=== PATIENT | female | born 1950 | race Caucasian/White ===

== ENCOUNTER → 2017-07-16 | Outpatient (CLI) | payer MEDICARE ==
[2017-07-16 10:19] LABS: MEAN CORPUSCULAR HEMOGLOBIN 30.5 pg (27.0-33.0); MEAN CORPUSCULAR HGB CONC 32.5 g/dl (32.0-36.5); MEAN CORPUSCULAR VOLUME 93.8 fl (80.0-96.0); RED CELL DISTRIBUTION WIDTH 13.3 % (11.5-14.5); WHITE BLOOD COUNT 7.7 10^3/uL (4.0-10.0)
[2017-07-16 11:00] LABS: ALBUMIN 3.9 GM/DL (3.2-5.2); ALBUMIN/GLOBULIN RATIO 1.26 (1.00-1.93); ALKALINE PHOSPHATASE 89 U/L (45-117); ALT/SGPT 18 U/L (12-78); ANION GAP 6 MEQ/L (8-16); AST/SGOT 14 U/L (15-37); BILIRUBIN,TOTAL 0.3 MG/DL (0.2-1.0); BLOOD UREA NITROGEN 16 MG/DL (7-18); CALCIUM LEVEL 8.8 MG/DL (8.8-10.2); CARBON DIOXIDE LEVEL 29 MEQ/L (21-32); CHLORIDE LEVEL 105 MEQ/L (98-107); CHOLESTEROL LEVEL 223 MG/DL (<200); CREATININE FOR GFR 0.67 MG/DL (0.55-1.02); GLOMERULAR FILTRATION RATE > 60.0 (>45); GLUCOSE, FASTING 86 MG/DL (80-110); POTASSIUM SERUM 4.8 MEQ/L (3.5-5.1); SODIUM LEVEL 140 MEQ/L (136-145); TRIGLYCERIDES LEVEL 100 MG/DL (<150)
--- NOTE | 2017-07-16 11:01 | REP ---
Chest two views HISTORY: COPD Comparison: None The lungs are hyperinflated. A minimal increase in interstitial markings is present in the lungs. Bullae are present in the upper lobes. The heart is normal in size. The pulmonary vasculature is normal in appearance. The bony structure is intact. IMPRESSION: COPD Signed by Wilmer Purvis MD 07/16/2017 10:52 A
--- NOTE | 2017-07-17 23:13 | ECGEPIP ---
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
== END ==
LOC: M LAB 09:12
PROVIDERS: ATTEND Family Medicine
DX: Z01.818 Encounter for other preprocedural examination (principal); D64.9 Anemia, unspecified; J44.9 Chronic obstructive pulmonary disease, unspecified; Z79.899 Other long term (current) drug therapy

== ENCOUNTER → 2017-11-05 | Outpatient (CLI) | payer MEDICARE ==
[2017-11-05 13:56] LABS: FREE T4 1.22 NG/DL (0.76-1.46)
== END ==
LOC: M WUC 10:15
DX: E89.0 Postprocedural hypothyroidism (principal)
CPT/HCPCS: 84443

== ENCOUNTER → 2018-01-05 | Outpatient (CLI) | payer MEDICARE ==
[2018-01-05 09:53] LABS: HEMATOCRIT 41.5 % (36.0-47.0); HEMOGLOBIN 13.6 g/dl (12.0-16.0); MEAN CORPUSCULAR HEMOGLOBIN 31.1 pg (27.0-33.0); MEAN CORPUSCULAR HGB CONC 32.8 g/dl (32.0-36.5); MEAN CORPUSCULAR VOLUME 94.7 fl (80.0-96.0); PLATELET COUNT, AUTOMATED 251 10^3/uL (150-450); RED BLOOD COUNT 4.38 10^6/uL (4.00-5.40); RED CELL DISTRIBUTION WIDTH 13.3 % (11.5-14.5); WHITE BLOOD COUNT 4.4 10^3/uL (4.0-10.0)
[2018-01-05 10:29] LABS: PROTHROMBIN TIME 14.4 SECONDS (12.4-14.5)
[2018-01-05 10:46] LABS: ALBUMIN 3.6 GM/DL (3.2-5.2); ALBUMIN/GLOBULIN RATIO 1.09 (1.00-1.93); ALKALINE PHOSPHATASE 85 U/L (45-117); ALT/SGPT 17 U/L (12-78); ANION GAP 6 MEQ/L (8-16); AST/SGOT 16 U/L (7-37); BILIRUBIN,TOTAL 0.4 MG/DL (0.2-1.0); BLOOD UREA NITROGEN 11 MG/DL (7-18); CALCIUM LEVEL 8.7 MG/DL (8.8-10.2); CARBON DIOXIDE LEVEL 30 MEQ/L (21-32); CHLORIDE LEVEL 107 MEQ/L (98-107); CHOLESTEROL LEVEL 204 MG/DL (<200); CHOLESTEROL RISK RATIO 2.582 (<5); CREATININE FOR GFR 0.67 MG/DL (0.55-1.30); GLOMERULAR FILTRATION RATE > 60.0 (>45); GLUCOSE, FASTING 79 MG/DL (70-100); HDL CHOLESTEROL 79 MG/DL (>40); LDL CHOLESTEROL 106.2 MG/DL (<100); NON-HDL-C 125 MG/DL; POTASSIUM SERUM 4.5 MEQ/L (3.5-5.1); SODIUM LEVEL 143 MEQ/L (136-145); THYROID STIMULATING HORMONE 0.819 uIU/ML (0.358-3.740); TOTAL PROTEIN 6.9 GM/DL (6.4-8.2); TRIGLYCERIDES LEVEL 94 MG/DL (<150)
[2018-01-05 11:53] LABS: ESTIMATED AVERAGE GLUCOSE 137 MG/DL (60-110); HEMOGLOBIN A1c 6.4 %
== END ==
LOC: M LAB 09:16
DX: J44.9 Chronic obstructive pulmonary disease, unspecified (principal); E89.0 Postprocedural hypothyroidism
CPT/HCPCS: 71046

== ENCOUNTER → 2018-11-03 | Outpatient (REF) | payer MEDICARE | LOC: M LABDRAW1 15:37 | PROVIDERS: ATTEND Internal Medicine Endocrinology, Diabetes & Metabolism | DX: E89.0 Postprocedural hypothyroidism (principal) ==

== ENCOUNTER → 2019-11-07 | Outpatient (CLI) | payer MEDICARE | LOC: M WUC 10:31 | PROVIDERS: ATTEND Internal Medicine Endocrinology, Diabetes & Metabolism | DX: E89.0 Postprocedural hypothyroidism (principal) ==

== ENCOUNTER → 2020-06-12 | Outpatient (CLI) | payer MEDICARE | LOC: M WUC 08:08 | PROVIDERS: ATTEND Internal Medicine Endocrinology, Diabetes & Metabolism | DX: E89.0 Postprocedural hypothyroidism (principal) ==

== ENCOUNTER → 2021-05-08 | Outpatient (REF) | payer MEDICARE | LOC: M WUC 12:33 → M LAB REF 12:33 | PROVIDERS: ATTEND Internal Medicine Endocrinology, Diabetes & Metabolism | DX: E89.0 Postprocedural hypothyroidism (principal) ==

== ENCOUNTER → 2022-01-06 | Outpatient (CLI) | payer MEDICARE ==
[2022-01-06 12:17] LABS: HEMATOCRIT 44.4 % (36.0-47.0); HEMOGLOBIN 14.5 g/dl (12.0-15.5); MEAN CORPUSCULAR HEMOGLOBIN 30.5 pg (27.0-33.0); MEAN CORPUSCULAR HGB CONC 32.7 g/dl (32.0-36.5); MEAN CORPUSCULAR VOLUME 93.5 fl (80.0-96.0); PLATELET COUNT, AUTOMATED 327 10^3/uL (150-450); RED BLOOD COUNT 4.75 10^6/uL (4.00-5.40); WHITE BLOOD COUNT 6.5 10^3/uL (4.0-10.0)
[2022-01-06 13:54] LABS: ALT/SGPT 23 U/L (12-78); BILIRUBIN,TOTAL 0.5 MG/DL (0.2-1.0); BLOOD UREA NITROGEN 11 MG/DL (7-18); CARBON DIOXIDE LEVEL 28 MEQ/L (21-32); CHLORIDE LEVEL 107 MEQ/L (98-107); CHOLESTEROL LEVEL 221 MG/DL (<200); CREATININE FOR GFR 0.82 MG/DL (0.55-1.30); GLOMERULAR FILTRATION RATE > 60.0 (>45); GLUCOSE, FASTING 91 MG/DL (70-100); POTASSIUM SERUM 4.2 MEQ/L (3.5-5.1); SODIUM LEVEL 139 MEQ/L (136-145); TRIGLYCERIDES LEVEL 91 MG/DL (<150)
[2022-01-06 13:55] LABS: ALBUMIN 3.7 GM/DL (3.2-5.2); CHOLESTEROL RISK RATIO 3.298 (<5); HDL CHOLESTEROL 67 MG/DL (>40); LDL CHOLESTEROL 136 MG/DL (<100); NON-HDL-C 154 MG/DL; THYROID STIMULATING HORMONE 0.525 uIU/ML (0.358-3.740); TOTAL 25(OH) VITAMIN D 18.8 NG/ML (30.0-100.0); TOTAL PROTEIN 6.8 GM/DL (6.4-8.2)
[2022-01-06 14:44] LABS: HEMOGLOBIN A1c 5.8 %
== END ==
LOC: M LAB 11:18
PROVIDERS: ATTEND Family Medicine
DX: D64.9 Anemia, unspecified (principal); R53.83 Other fatigue; E03.9 Hypothyroidism, unspecified

== ENCOUNTER → 2022-06-09 | Outpatient (CLI) | payer MEDICARE ==
[2022-06-09 12:53] LABS: HEMATOCRIT 43.8 % (36.0-47.0); HEMOGLOBIN 14.2 g/dl (12.0-15.5); MEAN CORPUSCULAR HEMOGLOBIN 30.7 pg (27.0-33.0); MEAN CORPUSCULAR HGB CONC 32.4 g/dl (32.0-36.5); MEAN CORPUSCULAR VOLUME 94.6 fl (80.0-96.0); PLATELET COUNT, AUTOMATED 375 10^3/uL (150-450); RED BLOOD COUNT 4.63 10^6/uL (4.00-5.40)
[2022-06-09 13:43] LABS: ALBUMIN 3.6 GM/DL (3.2-5.2); ALT/SGPT 26 U/L (12-78); BILIRUBIN,TOTAL 0.3 MG/DL (0.2-1.0); BLOOD UREA NITROGEN 16 MG/DL (7-18); CALCIUM LEVEL 9.1 MG/DL (8.8-10.2); CARBON DIOXIDE LEVEL 26 MEQ/L (21-32); CHLORIDE LEVEL 105 MEQ/L (98-107); CHOLESTEROL LEVEL 232 MG/DL (<200); CHOLESTEROL RISK RATIO 3.625 (<5); CREATININE FOR GFR 0.82 MG/DL (0.55-1.30); GLOMERULAR FILTRATION RATE > 60.0 (>45); GLUCOSE, FASTING 83 MG/DL (70-100); HDL CHOLESTEROL 64 MG/DL (>40); LDL CHOLESTEROL 148 MG/DL (<100); NON-HDL-C 168 MG/DL; POTASSIUM SERUM 4.3 MEQ/L (3.5-5.1); SODIUM LEVEL 136 MEQ/L (136-145); TOTAL PROTEIN 6.8 GM/DL (6.4-8.2); TRIGLYCERIDES LEVEL 98 MG/DL (<150)
[2022-06-09 14:13] LABS: TOTAL 25(OH) VITAMIN D 102.6 NG/ML (30.0-100.0)
== END ==
LOC: M LAB 12:11
PROVIDERS: ATTEND Family Medicine
DX: I10 Essential (primary) hypertension (principal); R53.83 Other fatigue; E03.9 Hypothyroidism, unspecified

== ENCOUNTER → 2022-06-26 | Outpatient (REF) | payer MEDICARE | LOC: M LABWUC 16:11 | PROVIDERS: ATTEND Internal Medicine Endocrinology, Diabetes & Metabolism | DX: E89.0 Postprocedural hypothyroidism (principal) ==

== ENCOUNTER → 2022-11-24 | Outpatient (CLI) | payer MEDICARE ==
[2022-11-24 10:08] LABS: HEMATOCRIT 43.6 % (36.0-47.0); HEMOGLOBIN 14.1 g/dl (12.0-15.5); MEAN CORPUSCULAR HEMOGLOBIN 32.1 pg (27.0-33.0); MEAN CORPUSCULAR HGB CONC 32.3 g/dl (32.0-36.5); MEAN CORPUSCULAR VOLUME 99.3 fl (80.0-96.0); PLATELET COUNT, AUTOMATED 452 10^3/uL (150-450); RED BLOOD COUNT 4.39 10^6/uL (4.00-5.40); WHITE BLOOD COUNT 9.4 10^3/uL (4.0-10.0)
[2022-11-24 10:43] LABS: ALBUMIN 3.9 G/DL (3.2-5.2); ALKALINE PHOSPHATASE 105 U/L (46-116); ALT/SGPT 33 U/L (7.0-40); AST/SGOT 34 U/L (<34); BILIRUBIN,TOTAL 0.4 MG/DL (0.3-1.2); BLOOD UREA NITROGEN 17 MG/DL (9-23); CALCIUM LEVEL 9.1 MG/DL (8.3-10.6); CARBON DIOXIDE LEVEL 27 MMOL/L (20-31); CHLORIDE LEVEL 103 MMOL/L (98-107); CHOLESTEROL LEVEL 167 MG/DL (<200); CHOLESTEROL RISK RATIO 2.72 (<5); GLOMERULAR FILTRATION RATE > 60.0 (>39); GLUCOSE, FASTING 115 MG/DL (74-106); HDL CHOLESTEROL 61.2 MG/DL (>40); LDL CHOLESTEROL 86.4 MG/DL (<100); NON-HDL-C 106 MG/DL; POTASSIUM SERUM 4.4 MMOL/L (3.5-5.1); SODIUM LEVEL 137 MMOL/L (136-145); TOTAL PROTEIN 7.3 G/DL (5.7-8.2); TRIGLYCERIDES LEVEL 97 MG/DL (<150)
[2022-11-24 10:45] LABS: THYROID STIMULATING HORMONE 0.563 uIU/ML (0.55-4.78); TOTAL 25(OH) VITAMIN D 37.6 NG/ML (20.0-100.0)
== END ==
LOC: M RAD 09:23
PROVIDERS: ATTEND Family Medicine
DX: J18.9 Pneumonia, unspecified organism (principal); D64.9 Anemia, unspecified; J44.9 Chronic obstructive pulmonary disease, unspecified; J98.11 Atelectasis

== ENCOUNTER → 2022-12-03 | Outpatient (CLI) | payer MEDICARE | LOC: M RAD 10:54 | PROVIDERS: ATTEND Family Medicine | DX: J18.9 Pneumonia, unspecified organism (principal); J84.10 Pulmonary fibrosis, unspecified; J43.9 Emphysema, unspecified; R91.1 Solitary pulmonary nodule; R91.8 Other nonspecific abnormal finding of lung field ==

== ENCOUNTER → 2023-01-21 | Outpatient (CLI) | payer MEDICARE ==
[2023-01-21 11:06] LABS: HEMATOCRIT 39.8 % (36.0-47.0); HEMOGLOBIN 12.9 g/dl (12.0-15.5); MEAN CORPUSCULAR HEMOGLOBIN 31.9 pg (27.0-33.0); MEAN CORPUSCULAR HGB CONC 32.4 g/dl (32.0-36.5); MEAN CORPUSCULAR VOLUME 98.5 fl (80.0-96.0); PLATELET COUNT, AUTOMATED 337 10^3/uL (150-450); RED BLOOD COUNT 4.04 10^6/uL (4.00-5.40); WHITE BLOOD COUNT 16.5 10^3/uL (4.0-10.0)
[2023-01-21 11:30] LABS: HEMOGLOBIN A1c 5.5 % (4.0-6.0)
[2023-01-21 11:34] LABS: ALKALINE PHOSPHATASE 108 U/L (46-116); ALT/SGPT 22 U/L (7.0-40); AST/SGOT 18 U/L (<34); BILIRUBIN,TOTAL 0.4 MG/DL (0.3-1.2); BLOOD UREA NITROGEN 18 MG/DL (9-23); CALCIUM LEVEL 9.1 MG/DL (8.3-10.6); CARBON DIOXIDE LEVEL 28 MMOL/L (20-31); CHLORIDE LEVEL 106 MMOL/L (98-107); CHOLESTEROL LEVEL 122 MG/DL (<200); CHOLESTEROL RISK RATIO 2.31 (<5); GLOMERULAR FILTRATION RATE > 60.0 (>39); GLUCOSE, FASTING 152 MG/DL (74-106); HDL CHOLESTEROL 52.6 MG/DL (>40); IRON (FE) 13 UG/DL (50-170); LDL CHOLESTEROL 51.8 MG/DL (<100); NON-HDL-C 69.4 MG/DL; PERCENT SATURATION 5.9 % (13.2-45.0); POTASSIUM SERUM 3.6 MMOL/L (3.5-5.1); SODIUM LEVEL 140 MMOL/L (136-145); THYROID STIMULATING HORMONE 1.138 uIU/ML (0.55-4.78); TOTAL IRON BINDING CAPACITY 221 UG/DL (250-425); TOTAL PROTEIN 6.1 G/DL (5.7-8.2); TRIGLYCERIDES LEVEL 88 MG/DL (<150)
== END ==
LOC: M LAB 10:18
PROVIDERS: ATTEND Family Medicine
DX: D64.9 Anemia, unspecified (principal); R53.83 Other fatigue; E03.9 Hypothyroidism, unspecified

== ENCOUNTER → 2023-03-02 | Outpatient (CLI) | payer MEDICARE | LOC: M RAD 15:51 | PROVIDERS: ATTEND Family Medicine | DX: J44.9 Chronic obstructive pulmonary disease, unspecified (principal) ==

== ENCOUNTER → 2023-07-30 | Outpatient (CLI) | payer MEDICARE ==
[2023-07-30 15:28] LABS: HEMATOCRIT 44.7 % (36.0-47.0); HEMOGLOBIN 14.9 g/dl (12.0-15.5); MEAN CORPUSCULAR HGB CONC 33.3 g/dl (32.0-36.5); MEAN CORPUSCULAR VOLUME 98.9 fl (80.0-96.0); PLATELET COUNT, AUTOMATED 377 10^3/uL (150-450); RED BLOOD COUNT 4.52 10^6/uL (4.00-5.40); WHITE BLOOD COUNT 10.1 10^3/uL (4.0-10.0)
== END ==
LOC: M LAB 13:57
PROVIDERS: ATTEND Family Medicine
DX: D64.9 Anemia, unspecified (principal); R53.83 Other fatigue; J44.9 Chronic obstructive pulmonary disease, unspecified; J32.0 Chronic maxillary sinusitis

== ENCOUNTER 2023-09-18 14:37 | Emergency (ER) | payer MEDICARE ==
[~2023-09-18] VITALS: Ht 154.9 cm; Wt 40.9 kg
[2023-09-18 14:40] VITALS: TEMP 98.6
[2023-09-18] MEDS ORDERED: IPRATROPIUM 0.5MG/ALBUTEROL 2.5MG INH SOL UD 3ML (DUONEB) NEB PRN (17:55)
[2023-09-18] MEDS ORDERED: methylPREDNISolone 125MG 2ML VIAL IV ONE (17:55)
[2023-09-18 18:13] LABS: BASO % 0.4 % (0.0-1.0); EOS # 0.1 10^3/uL (0.0-0.5); EOS % 0.7 % (0.0-3.0); LYMPH % 8.5 % (24.0-44.0); MEAN CORPUSCULAR HEMOGLOBIN 32.6 pg (27.0-33.0); MEAN CORPUSCULAR HGB CONC 33.3 g/dl (32.0-36.5); MEAN CORPUSCULAR VOLUME 97.8 fl (80.0-96.0); MONO # 1.4 10^3/uL (0.0-0.8); MONO % 12.7 % (2.0-8.0); NEUTROPHILS # 8.7 10^3/uL (1.5-8.5); PLATELET COUNT, AUTOMATED 352 10^3/uL (150-450); RED BLOOD COUNT 3.68 10^6/uL (4.00-5.40); WHITE BLOOD COUNT 11.3 10^3/uL (4.0-10.0)
[2023-09-18 18:36] LABS: ALBUMIN 2.6 G/DL (3.2-5.2); ALKALINE PHOSPHATASE 102 U/L (46-116); ALT/SGPT 43 U/L (7.0-40); AST/SGOT 27 U/L (<34); BILIRUBIN,DIRECT 0.4 MG/DL (<0.4); BLOOD UREA NITROGEN 13 MG/DL (9-23); CALCIUM LEVEL 8.3 MG/DL (8.3-10.6); CARBON DIOXIDE LEVEL 22 MMOL/L (20-31); CHLORIDE LEVEL 102 MMOL/L (98-107); CREATININE FOR GFR 0.65 MG/DL (0.55-1.30); GLOMERULAR FILTRATION RATE > 60.0 (>39); GLUCOSE, FASTING 76 MG/DL (74-106); POTASSIUM SERUM 4.8 MMOL/L (3.5-5.1); SODIUM LEVEL 135 MMOL/L (136-145); TOTAL PROTEIN 5.8 G/DL (5.7-8.2)
[2023-09-18 18:37] LABS: THYROXINE (T4) 11.7 UG/DL (4.5-10.9)
[2023-09-18 18:38] LABS: THYROID STIMULATING HORMONE 0.615 uIU/ML (0.55-4.78)
[2023-09-18 19:31] VITALS: O2SAT 91
[2023-09-18] MEDS ORDERED: IPRATROPIUM 0.5MG/ALBUTEROL 2.5MG INH SOL UD 3ML (DUONEB) NEB ONE ×2 (19:55)
[2023-09-18] MEDS ORDERED: ALBU8.5H INH (20:07)
[2023-09-18] MEDS ORDERED: FLUTISP NARES (20:07)
[2023-09-18] MEDS ORDERED: CITA20TA7 PO (20:07)
[2023-09-18] MEDS ORDERED: FERR325T19 PO (20:07)
[2023-09-18] MEDS ORDERED: BUDE10.7 INH (20:07)
[2023-09-18] MEDS ORDERED: LEVO112T2 PO (20:08)
[2023-09-18] MEDS ORDERED: SIMV10TA21 PO (20:08)
[2023-09-18 20:18] VITALS: BP 159/89; O2SAT 89
[2023-09-18] MEDS ORDERED: HOME MED LIST COMPLETE! XX SCH (20:25)
[2023-09-18] MEDS ORDERED: BUDESONIDE 0.5 MG/2 ML INHALATION SUSPENSION INH SCH (20:30)
[2023-09-18] MEDS ORDERED: FORMOTEROL FUMARATE 20 MCG/2 ML INHALATION SOLUTION (PERFOROMIST) INH SCH (20:30)
[2023-09-18] MEDS ORDERED: CEFU50TA PO (20:58)
[2023-09-18] MEDS ORDERED: PRED20TA PO (20:58)
[2023-09-18] MEDS ORDERED: PANTOPRAZOLE 40MG TAB (PROTONIX) PO SCH (21:00)
[2023-09-18] MEDS ORDERED: AZITHROMYCIN 250MG TABLET PO SCH (21:00)
[2023-09-18] MEDS ORDERED: CitaloPRAM (CeleXA) 20 MG TAB PO SCH (21:00)
[2023-09-18] MEDS ORDERED: SIMVASTATIN 10 MG TAB PO SCH (21:00)
[2023-09-18] MEDS ORDERED: CEFUROXIME 500 MG TAB PO STA (21:01)
[2023-09-19] MEDS ORDERED: IPRATROPIUM 0.5MG/ALBUTEROL 2.5MG INH SOL UD 3ML (DUONEB) NEB SCH
[2023-09-19] MEDS ORDERED: methylPREDNISolone 40MG 1ML VIAL IV SCH
[2023-09-19] MEDS ORDERED: LEVOTHYROXINE 112MCG TABLET (0.112MG) PO SCH (06:00)
[2023-09-28] MEDS ORDERED: ERGO500029 PO (18:58)
[2023-09-29] MEDS ORDERED: PRED10TA2 PO (10:46)
[2023-09-29] MEDS ORDERED: MUCI1TAB16 PO (10:46)
[2023-09-29] MEDS ORDERED: DOXY-444 PO (10:46)
[2023-09-29] MEDS ORDERED: ALBU8.5H INH (10:46)
[2023-09-29] MEDS ORDERED: AZIT-12 PO (10:46)
[2023-09-29] MEDS ORDERED: PRED20TA PO (10:46)
[2023-10-02] MEDS ORDERED: ALPR0.25 PO (08:29)
[2023-10-02] MEDS ORDERED: AMLO1TAB24 PO (08:29)
[2023-10-02] MEDS ORDERED: NYST-38 PO (08:29)
== END 2023-09-18 21:25 | disposition home or self-care (01) ==
LOC: M ED 14:37 → UNDOADMIN 20:28 → M ED INP 20:28 → UNDODISIN 21:24
PROVIDERS: ADMIT Internal Medicine Nephrology
DX: J44.1 Chronic obstructive pulmonary disease with (acute) exacerbation (principal); I44.4 Left anterior fascicular block; I25.2 Old myocardial infarction; Z79.52 Long term (current) use of systemic steroids; Z79.2 Long term (current) use of antibiotics; Z79.899 Other long term (current) drug therapy
CPT/HCPCS: 71046; 80048; 80076; 83605; 83880; 84436; 84443; 85025; 87040; 87486; 87581; 87633; 87798; 93005; 93041; 94640; 94760; 96374; 99284; J2930

== ENCOUNTER → 2023-09-24 | Outpatient (REF) | payer MEDICARE ==
[~2023-09-24] MED LIST: ALBU8.5H INH; BUDE10.7 INH; CEFU50TA PO; CITA20TA7 PO; FERR325T19 PO; FLUTISP; LEVO112T2 PO; PRED20TA PO; SIMV10TA21 PO
[2023-09-24 18:01] LABS: THYROID STIMULATING HORMONE 0.12 uIU/ML (0.55-4.78)
[2023-09-24 18:02] LABS: FREE T4 1.55 NG/DL (0.89-1.76)
== END ==
LOC: M LABWUC 16:32
PROVIDERS: ATTEND Internal Medicine Endocrinology, Diabetes & Metabolism
DX: E89.0 Postprocedural hypothyroidism (principal)

== ENCOUNTER → 2023-12-01 | Outpatient (CLI) | payer MEDICARE, OTHER ==
[~2023-12-01] MED LIST changes: +ALPR0.25 PO; +AMLO1TAB24 PO; +AZIT-12 PO; +DOXY-444 PO; +ERGO500029 PO; -FLUTISP; +FLUTISP NARES; +MUCI1TAB16 PO; +NYST-38 PO; +PRED10TA2 PO
[2023-12-01 17:58] LABS: THYROID STIMULATING HORMONE 0.384 uIU/ML (0.55-4.78)
[2023-12-01 17:59] LABS: FREE T4 1.34 NG/DL (0.89-1.76)
== END ==
LOC: M WUC 14:00
PROVIDERS: ATTEND Internal Medicine Endocrinology, Diabetes & Metabolism
DX: E89.0 Postprocedural hypothyroidism (principal)

== ENCOUNTER → 2023-12-17 | Outpatient (REF) | payer MEDICARE, OTHER | LOC: M LAB REF 16:45 | PROVIDERS: ATTEND Physician Assistant | DX: Z51.81 Encounter for therapeutic drug level monitoring (principal); F41.1 Generalized anxiety disorder ==

== ENCOUNTER → 2024-01-19 | Outpatient (REF) | payer MEDICARE, OTHER ==
[2024-01-19 18:05] LABS: HEMOGLOBIN 13.8 g/dl (12.0-15.5); MEAN CORPUSCULAR HEMOGLOBIN 30.6 pg (27.0-33.0); MEAN CORPUSCULAR HGB CONC 31.4 g/dl (32.0-36.5); MEAN CORPUSCULAR VOLUME 97.6 fl (80.0-96.0); PLATELET COUNT, AUTOMATED 365 10^3/uL (150-450); RED BLOOD COUNT 4.51 10^6/uL (4.00-5.40); WHITE BLOOD COUNT 10.4 10^3/uL (4.0-10.0)
[2024-01-19 18:31] LABS: BLOOD UREA NITROGEN 25 MG/DL (9-23); CALCIUM LEVEL 8.6 MG/DL (8.3-10.6); CARBON DIOXIDE LEVEL 26 MMOL/L (20-31); CHLORIDE LEVEL 107 MMOL/L (98-107); CREATININE FOR GFR 0.96 MG/DL (0.55-1.30); GLOMERULAR FILTRATION RATE > 60.0 (>39); GLUCOSE, FASTING 109 MG/DL (74-106); POTASSIUM SERUM 5.1 MMOL/L (3.5-5.1); SODIUM LEVEL 139 MMOL/L (136-145)
[2024-01-19 18:34] LABS: THYROID STIMULATING HORMONE 0.372 uIU/ML (0.55-4.78)
== END ==
LOC: M LAB REF 17:17
PROVIDERS: ATTEND Physician Assistant
DX: I10 Essential (primary) hypertension (principal)

== ENCOUNTER → 2024-06-17 | Outpatient (CLI) | payer MEDICARE, OTHER ==
[~2024-06-17] MED LIST changes: +DOXY-440 PO; -DOXY-444 PO; +LISI10TA22 PO
== END ==
LOC: M WUC 09:49
PROVIDERS: ATTEND Physician Assistant
DX: M54.50 Low back pain, unspecified (principal); M47.812 Spondylosis without myelopathy or radiculopathy, cervical region; M48.56XA Collapsed vertebra, not elsewhere classified, lumbar region, initial encounter for fracture

== ENCOUNTER 2024-07-04 10:14 | Day surgery (SDC) | payer MEDICARE ==
[~2024-07-04] VITALS: Ht 154.9 cm; Wt 49.9 kg
[~2024-07-04 10:14] MED LIST changes: +CEFUROXIME 1MG/0.1ML INTRACAMERAL INJ As Ordered ONE; +LIDOCAINE 1% SDV 5ML VIAL As Ordered ONE; +LR 1,000 ML IV SCH
[2024-07-04] MEDS ORDERED: MIDAZOLAM INJ 2MG/2ML VIAL As Ordered ONE (12:18)
[2024-07-04 12:51] VITALS: BP 132/87; TEMP 97.2; O2SAT 94
[2024-07-04] MEDS: PHENYLEPHRINE 2.5% OPHTH SOL 2ML OD SCH (13:46)
[2024-07-04] MEDS: ATROPINE SULFATE 1% OPHTH SOLN 2ML BTL OD SCH (13:46)
[2024-07-04] MEDS: TETRACAINE 0.5% OPHTH SOLN 4ML OD SCH (13:46)
[2024-07-04] MEDS: FLURBIPROFEN 0.03% OPHTH SOLN 2.5 ML OD SCH (13:46)
== END 2024-07-04 13:08 | disposition home or self-care (01) ==
LOC: M SDC 10:14
PROVIDERS: ATTEND Ophthalmology
DX: H25.11 Age-related nuclear cataract, right eye (principal); I10 Essential (primary) hypertension; E78.5 Hyperlipidemia, unspecified; E03.9 Hypothyroidism, unspecified; D64.9 Anemia, unspecified; F41.9 Anxiety disorder, unspecified; J44.9 Chronic obstructive pulmonary disease, unspecified; Z87.891 Personal history of nicotine dependence; Z79.51 Long term (current) use of inhaled steroids; Z79.899 Other long term (current) drug therapy
CPT/HCPCS: 66984; 92015; J0697; J2250; V2632

== ENCOUNTER 2024-07-11 14:15 | Emergency (ER) | payer MEDICARE ==
[~2024-07-11] VITALS: Ht 154.9 cm; Wt 50.5 kg
[~2024-07-11 14:15] MED LIST changes: -CEFUROXIME 1MG/0.1ML INTRACAMERAL INJ As Ordered ONE; -LIDOCAINE 1% SDV 5ML VIAL As Ordered ONE; -LR 1,000 ML IV SCH
[2024-07-11] MEDS: ACETAMINOPHEN 500 MG TAB PO ONE (20:04)
[2024-07-11 20:35] LABS: BASO # 0.1 10^3/uL (0.0-0.2); BASO % 0.5 % (0.0-1.0); EOS # 0.2 10^3/uL (0.0-0.5); EOS % 1.9 % (0.0-3.0); HEMATOCRIT 39.9 % (36.0-47.0); HEMOGLOBIN 12.9 g/dl (12.0-15.5); LYMPH # 1.9 10^3/uL (1.5-5.0); LYMPH % 16.4 % (24.0-44.0); MEAN CORPUSCULAR HEMOGLOBIN 31.3 pg (27.0-33.0); MEAN CORPUSCULAR HGB CONC 32.3 g/dl (32.0-36.5); MEAN CORPUSCULAR VOLUME 96.8 fl (80.0-96.0); MONO # 1.3 10^3/uL (0.0-0.8); MONO % 11.6 % (2.0-8.0); NEUTROPHILS # 7.7 10^3/uL (1.5-8.5); NEUTROPHILS % 67.5 % (36.0-66.0); PLATELET COUNT, AUTOMATED 411 10^3/uL (150-450); RED BLOOD COUNT 4.12 10^6/uL (4.00-5.40); WHITE BLOOD COUNT 11.4 10^3/uL (4.0-10.0)
[2024-07-11 20:55] LABS: CALCIUM LEVEL 8.9 MG/DL (8.3-10.6); CREATININE FOR GFR 1.32 MG/DL (0.55-1.30); GLOMERULAR FILTRATION RATE 42.1 (>39); POTASSIUM SERUM 4.8 MMOL/L (3.5-5.1)
[2024-07-11 20:56] LABS: CK-MB VALUE MASS 1.5 NG/ML (<3.6)
[2024-07-11] MEDS ORDERED: ISOVUE-370 76% 100ML VIAL As Ordered ONE (20:57)
[2024-07-11 21:06] LABS: MB/CK RELATIVE INDEX 3.06 (< OR =4)
[2024-07-11 22:42] VITALS: BP 125/65; TEMP 97.6; O2SAT 93
[2024-07-11] MEDS ORDERED: BACTDSTA PO (22:58)
[2024-07-11] MEDS ORDERED: BUDE0.5S6 NEB (22:58)
[2024-07-11] MEDS ORDERED: ALPR0.25 PO (22:58)
[2024-07-11] MEDS ORDERED: LEVO100T5 PO (22:58)
[2024-07-11] MEDS ORDERED: SERT50TA29 PO (22:58)
[2024-07-11] MEDS ORDERED: AMLO1TAB24 PO (22:58)
[2024-07-11] MEDS ORDERED: PRED10TA2 PO (22:59)
[2024-07-11] MEDS ORDERED: HOME MED LIST COMPLETE! XX SCH (23:00)
[2024-07-11] MEDS ORDERED: LIDO5DIS41 TOP (23:03)
== END 2024-07-11 23:16 | disposition home or self-care (01) ==
LOC: M ED 14:15
DX: S23.41XA Sprain of ribs, initial encounter (principal); J90 Pleural effusion, not elsewhere classified; R91.1 Solitary pulmonary nodule; I25.10 Atherosclerotic heart disease of native coronary artery without angina pectoris; J43.9 Emphysema, unspecified; I10 Essential (primary) hypertension; J44.9 Chronic obstructive pulmonary disease, unspecified; E78.5 Hyperlipidemia, unspecified; E03.9 Hypothyroidism, unspecified; Z79.899 Other long term (current) drug therapy
CPT/HCPCS: 71101; 71275; 80048; 82550; 82553; 84484; 85025; 87486; 87581; 87633; 87798; 93005; 99284; Q9967

== ENCOUNTER → 2024-07-15 | Outpatient (CLI) | payer MEDICARE ==
[~2024-07-15] MED LIST changes: +BACTDSTA PO; +BUDE0.5S6 NEB; +LEVO100T5 PO; +LIDO5DIS41 TOP; +SERT50TA29 PO
[2024-07-15 12:55] LABS: FREE T4 1.41 NG/DL (0.89-1.76); THYROID STIMULATING HORMONE 2.005 uIU/ML (0.55-4.78)
== END ==
LOC: M WUC 09:05
PROVIDERS: ATTEND Internal Medicine Endocrinology, Diabetes & Metabolism
DX: E89.0 Postprocedural hypothyroidism (principal)

== ENCOUNTER → 2024-08-16 | Outpatient (CLI) | payer MEDICARE | LOC: M WHC 09:52 | PROVIDERS: ATTEND Nurse Practitioner Family | DX: M81.0 Age-related osteoporosis without current pathological fracture (principal) ==

== ENCOUNTER 2024-10-17 10:51 | Observation (INO) | payer MEDICARE ==
[~2024-10-17] VITALS: Ht 154.9 cm; Wt 49.8 kg
[2024-10-17 11:26] LABS: BASO # 0.1 10^3/uL (0.0-0.2); BASO % 0.4 % (0.0-1.0); EOS # 0.1 10^3/uL (0.0-0.5); EOS % 0.6 % (0.0-3.0); HEMATOCRIT 37.8 % (36.0-47.0); HEMOGLOBIN 12.2 g/dl (12.0-15.5); LYMPH # 1.7 10^3/uL (1.5-5.0); LYMPH % 12.2 % (24.0-44.0); MEAN CORPUSCULAR HEMOGLOBIN 31.9 pg (27.0-33.0); MEAN CORPUSCULAR HGB CONC 32.3 g/dl (32.0-36.5); MONO # 1.3 10^3/uL (0.0-0.8); MONO % 9.1 % (2.0-8.0); NEUTROPHILS # 10.9 10^3/uL (1.5-8.5); NEUTROPHILS % 76.4 % (36.0-66.0); PLATELET COUNT, AUTOMATED 370 10^3/uL (150-450); RED BLOOD COUNT 3.82 10^6/uL (4.00-5.40); WHITE BLOOD COUNT 14.3 10^3/uL (4.0-10.0)
[2024-10-17 11:56] LABS: ALBUMIN 3.5 G/DL (3.2-5.2); ALKALINE PHOSPHATASE 101 U/L (35-104); ALT/SGPT 16 U/L (7.0-40); AST/SGOT 14 U/L (<34); BILIRUBIN,DIRECT < 0.1 MG/DL (<0.4); BILIRUBIN,TOTAL 0.3 MG/DL (0.3-1.2); BLOOD UREA NITROGEN 30 MG/DL (9-23); CALCIUM LEVEL 9.8 MG/DL (8.3-10.6); CARBON DIOXIDE LEVEL 23 MMOL/L (20-31); CHLORIDE LEVEL 108 MMOL/L (98-107); GLUCOSE, FASTING 89 MG/DL (74-106); POTASSIUM SERUM 4.4 MMOL/L (3.5-5.1); SODIUM LEVEL 141 MMOL/L (136-145); TOTAL PROTEIN 6.4 G/DL (5.7-8.2)
[2024-10-17] MEDS ORDERED: ISOVUE-370 76% 100ML VIAL As Ordered ONE (13:15)
[2024-10-17] MEDS: methylPREDNISolone 125MG 2ML VIAL IV ONE (13:59)
[2024-10-17] MEDS: ACETAMINOPHEN 325 MG TAB PO ONE (14:20)
[2024-10-17] MEDS: NS 500 ML IV ONE (15:30)
[2024-10-17] MEDS ORDERED: MOM 30ML SUSPENSION UDC PO PRN (18:15)
[2024-10-17] MEDS ORDERED: OYST500C PO (18:36)
[2024-10-17] MEDS ORDERED: HOME MED LIST COMPLETE! XX SCH (18:40)
[2024-10-17] MEDS: LR 1,000 ML IV SCH (19:04)
[2024-10-17] MEDS: MECLIZINE 25 MG TABLET PO ONE (19:04)
[2024-10-17] MEDS: SYMBICORT 160/4.5MCG INHALER 6GM INH SCH (19:52)
[2024-10-17] MEDS: GLYCOPYRROLATE INJ 0.2 MG/ML 2 ML VIAL NEB SCH (19:52)
[2024-10-17] MEDS: BACTRIM 160MG/800MG DS TAB PO SCH (20:54)
[2024-10-17] MEDS: ALPRAZolam 0.25 MG TAB PO SCH (20:54)
[2024-10-17 21:44] VITALS: BP 128/94; TEMP 99.1; O2SAT 93
[2024-10-17] MEDS: CALCIUM/VITAMIN D 500 MG TAB PO SCH (22:13)
[2024-10-17] MEDS: DOCUSATE SODIUM 100MG CAPSULE PO SCH (22:13)
[2024-10-17] MEDS: SIMVASTATIN 10 MG TAB PO SCH (22:13)
[2024-10-18 04:22] VITALS: BP 131/91; TEMP 98.2; O2SAT 94
[2024-10-18] MEDS: ACETAMINOPHEN 325 MG TAB PO PRN (05:19)
[2024-10-18] MEDS: LEVOTHYROXINE 100MCG TABLET (0.1MG) PO SCH (05:19)
[2024-10-18 06:09] LABS: HEMATOCRIT 32.2 % (36.0-47.0); HEMOGLOBIN 10.5 g/dl (12.0-15.5); MEAN CORPUSCULAR HEMOGLOBIN 31.9 pg (27.0-33.0); MEAN CORPUSCULAR HGB CONC 32.6 g/dl (32.0-36.5); MEAN CORPUSCULAR VOLUME 97.9 fl (80.0-96.0); PLATELET COUNT, AUTOMATED 341 10^3/uL (150-450); RED BLOOD COUNT 3.29 10^6/uL (4.00-5.40); WHITE BLOOD COUNT 11.5 10^3/uL (4.0-10.0)
[2024-10-18 06:32] LABS: CALCIUM LEVEL 9.3 MG/DL (8.3-10.6); POTASSIUM SERUM 5.2 MMOL/L (3.5-5.1)
[2024-10-18] MEDS: PATIROMER SORBITEX CALCIUM 8.4 GM POWDER PACKET (VELTASSA) PO ONE (09:37)
[2024-10-18] MEDS: predniSONE 10MG TAB PO SCH (09:38)
[2024-10-18] MEDS: amLODIPine 5 MG TAB PO SCH (09:38)
[2024-10-18] MEDS: SERTRALINE HCL 50 MG TAB PO SCH (09:38)
[2024-10-18] MEDS: ENOXAPARIN 40MG/0.4ML SYRINGE (J1650 PER 10MG) SC SCH (09:39)
[2024-10-18] MEDS: NS (Normal Saline) 0.9% 1,000 ML IV SCH (10:55)
[2024-10-18 12:00] VITALS: BP 154/96; TEMP 98.4; O2SAT 97
[2024-10-18] MEDS ORDERED: MECLIZINE 25 MG TABLET PO PRN (13:20)
[2024-10-18 15:13] LABS: FOLATE 11.5 NG/ML (>5.4)
[2024-10-18 20:02] VITALS: BP 149/95; TEMP 97.8; O2SAT 95
[2024-10-18] MEDS: TOPIRAMATE (TopAMAX) 25 MG TAB PO SCH (21:26)
[2024-10-19 04:00] VITALS: BP 143/96; TEMP 97.9; O2SAT 96
[2024-10-19 06:08] LABS: BASO % 0.3 % (0.0-1.0); EOS # 0.1 10^3/uL (0.0-0.5); EOS % 0.6 % (0.0-3.0); HEMOGLOBIN 9.7 g/dl (12.0-15.5); LYMPH # 1.7 10^3/uL (1.5-5.0); LYMPH % 15.1 % (24.0-44.0); MEAN CORPUSCULAR HGB CONC 31.3 g/dl (32.0-36.5); MONO # 1.2 10^3/uL (0.0-0.8); MONO % 10.3 % (2.0-8.0); NEUTROPHILS # 8.3 10^3/uL (1.5-8.5); NEUTROPHILS % 72.3 % (36.0-66.0); PLATELET COUNT, AUTOMATED 314 10^3/uL (150-450); RED BLOOD COUNT 3.13 10^6/uL (4.00-5.40); WHITE BLOOD COUNT 11.5 10^3/uL (4.0-10.0)
[2024-10-19 06:42] LABS: ALBUMIN 2.7 G/DL (3.2-5.2); CALCIUM LEVEL 8.3 MG/DL (8.3-10.6); CREATININE FOR GFR 0.98 MG/DL (0.55-1.30); GLOMERULAR FILTRATION RATE 59.4 (>39); MAGNESIUM LEVEL 1.6 MG/DL (1.8-2.4); PHOSPHORUS LEVEL 3.2 MG/DL (2.4-5.1); POTASSIUM SERUM 4.6 MMOL/L (3.5-5.1)
[2024-10-19 07:50] VITALS: BP_SYST 160; BP_SYST 165; BP_SYST 180; BP_DIAS 88; BP_DIAS 90; BP_DIAS 95
[2024-10-19] MEDS: MAG SULF 1GM/100ML (MAG RUN) 1 GM in IV 1 EA IV SCH (09:00)
[2024-10-19] MEDS: MAGNESIUM OXIDE 400MG TAB (MAG-OX) PO SCH (09:00)
[2024-10-19] MEDS ORDERED: MAGNESIUM OXIDE 400MG TAB (MAG-OX) PO SCH (09:00)
[2024-10-19] MEDS: NYSTATIN 500,000U/5ML SUSP UDC SS SCH (09:04)
[2024-10-19 10:36] VITALS: BP 146/86
[2024-10-19 12:00] VITALS: BP 146/82; TEMP 98.4; O2SAT 94
[2024-10-19] MEDS: ALPRAZolam 0.25 MG TAB PO SCH (12:11)
[2024-10-19] MEDS: CYANOCOBALAMIN 1,000MCG/ML 1ML VIAL IM SCH (18:32)
[2024-10-19 19:50] VITALS: BP 127/85; TEMP 99; O2SAT 96
[2024-10-20 04:00] VITALS: BP 136/88; TEMP 98.1; O2SAT 95
[2024-10-20 06:06] LABS: BASO % 0.4 % (0.0-1.0); EOS # 0.1 10^3/uL (0.0-0.5); EOS % 1.4 % (0.0-3.0); HEMOGLOBIN 10.1 g/dl (12.0-15.5); LYMPH # 1.6 10^3/uL (1.5-5.0); LYMPH % 19.1 % (24.0-44.0); MEAN CORPUSCULAR HEMOGLOBIN 31.8 pg (27.0-33.0); MEAN CORPUSCULAR HGB CONC 32.6 g/dl (32.0-36.5); MEAN CORPUSCULAR VOLUME 97.5 fl (80.0-96.0); MONO # 0.9 10^3/uL (0.0-0.8); MONO % 10.5 % (2.0-8.0); NEUTROPHILS # 5.6 10^3/uL (1.5-8.5); PLATELET COUNT, AUTOMATED 301 10^3/uL (150-450); RED BLOOD COUNT 3.18 10^6/uL (4.00-5.40); WHITE BLOOD COUNT 8.4 10^3/uL (4.0-10.0)
[2024-10-20 06:36] LABS: ALBUMIN 2.7 G/DL (3.2-5.2); CALCIUM LEVEL 8.4 MG/DL (8.3-10.6); CREATININE FOR GFR 1.05 MG/DL (0.55-1.30); GLOMERULAR FILTRATION RATE 54.8 (>39); MAGNESIUM LEVEL 2.2 MG/DL (1.8-2.4); PHOSPHORUS LEVEL 3.6 MG/DL (2.4-5.1); POTASSIUM SERUM 4.6 MMOL/L (3.5-5.1)
[2024-10-20] MEDS: ALBUTEROL 90 MCG/ACT 8GM HFA INHALER INH PRN (07:54)
[2024-10-20] MEDS: FLUTICASONE PROP 0.05% NASAL SPRAY 16 GM (FLONASE) NARES PRN (09:38)
[2024-10-20 12:00] VITALS: BP 127/79; TEMP 97.9; O2SAT 94
[2024-10-20] MEDS: MECLIZINE 25 MG TABLET PO SCH ×2 (12:19→21:31)
[2024-10-20 19:40] VITALS: BP 130/80; TEMP 98.1; O2SAT 93
[2024-10-21 04:00] VITALS: BP 148/87; TEMP 97.9; O2SAT 97
[2024-10-21 06:12] LABS: BASO % 0.3 % (0.0-1.0); EOS # 0.1 10^3/uL (0.0-0.5); EOS % 0.7 % (0.0-3.0); HEMATOCRIT 34.5 % (36.0-47.0); LYMPH # 1.6 10^3/uL (1.5-5.0); LYMPH % 10.7 % (24.0-44.0); MEAN CORPUSCULAR HEMOGLOBIN 31.2 pg (27.0-33.0); MEAN CORPUSCULAR HGB CONC 31.9 g/dl (32.0-36.5); MEAN CORPUSCULAR VOLUME 97.7 fl (80.0-96.0); MONO # 1.3 10^3/uL (0.0-0.8); MONO % 8.9 % (2.0-8.0); NEUTROPHILS # 11.6 10^3/uL (1.5-8.5); NEUTROPHILS % 78.1 % (36.0-66.0); PLATELET COUNT, AUTOMATED 344 10^3/uL (150-450); RED BLOOD COUNT 3.53 10^6/uL (4.00-5.40); WHITE BLOOD COUNT 14.9 10^3/uL (4.0-10.0)
[2024-10-21 06:32] LABS: BLOOD UREA NITROGEN 21 MG/DL (9-23); CARBON DIOXIDE LEVEL 24 MMOL/L (20-31); CHLORIDE LEVEL 106 MMOL/L (98-107); CREATININE FOR GFR 0.97 MG/DL (0.55-1.30); GLOMERULAR FILTRATION RATE > 60.0 (>39); GLUCOSE, FASTING 81 MG/DL (74-106); MAGNESIUM LEVEL 2.1 MG/DL (1.8-2.4); PHOSPHORUS LEVEL 3.3 MG/DL (2.4-5.1); SODIUM LEVEL 138 MMOL/L (136-145)
[2024-10-21 08:04] LABS: C REACTIVE PROTEIN QUANTITATIV 0.94 MG/DL (<1.0)
[2024-10-21] MEDS: BACTRIM 160MG/800MG DS TAB PO SCH (08:21)
[2024-10-21] MEDS: VITAMIN D 50,000 UNITS CAPSULE (ERGOCALCIFEROL 1.25MG) PO SCH (08:21)
[2024-10-21 08:35] LABS: PROCALCITONIN 0.07 ng/ml
[2024-10-21 12:00] VITALS: BP 141/89; TEMP 98.2; O2SAT 93
[2024-10-21] MEDS: PATIROMER SORBITEX CALCIUM 8.4 GM POWDER PACKET (VELTASSA) PO ONE (13:02)
[2024-10-21 20:00] VITALS: BP 143/85; TEMP 99; O2SAT 95
[2024-10-22 04:00] VITALS: BP 132/50; TEMP 98.6; O2SAT 92
[2024-10-22 06:12] LABS: BASO # 0.1 10^3/uL (0.0-0.2); BASO % 0.6 % (0.0-1.0); EOS # 0.1 10^3/uL (0.0-0.5); EOS % 0.9 % (0.0-3.0); HEMATOCRIT 36.7 % (36.0-47.0); HEMOGLOBIN 11.8 g/dl (12.0-15.5); LYMPH % 18.2 % (24.0-44.0); MEAN CORPUSCULAR HEMOGLOBIN 31.3 pg (27.0-33.0); MEAN CORPUSCULAR HGB CONC 32.2 g/dl (32.0-36.5); MEAN CORPUSCULAR VOLUME 97.3 fl (80.0-96.0); MONO # 0.9 10^3/uL (0.0-0.8); MONO % 8.5 % (2.0-8.0); NEUTROPHILS # 7.3 10^3/uL (1.5-8.5); PLATELET COUNT, AUTOMATED 364 10^3/uL (150-450); RED BLOOD COUNT 3.77 10^6/uL (4.00-5.40); WHITE BLOOD COUNT 10.8 10^3/uL (4.0-10.0)
[2024-10-22 06:17] LABS: Methylmalonic Acid 374 nmol/L (69-390)
[2024-10-22 06:43] LABS: ALBUMIN 3.1 G/DL (3.2-5.2); CALCIUM LEVEL 9.3 MG/DL (8.3-10.6); CREATININE FOR GFR 1.18 MG/DL (0.55-1.30); GLOMERULAR FILTRATION RATE 47.9 (>39); MAGNESIUM LEVEL 2.2 MG/DL (1.8-2.4); POTASSIUM SERUM 4.8 MMOL/L (3.5-5.1)
[2024-10-22 12:00] VITALS: BP 127/74; TEMP 97.9; O2SAT 92
[2024-10-22 19:42] LABS: VITAMIN E(ALPHA TOCOPHEROL) 9.6 mg/L (5.7-19.9); VITAMIN E(GAMMA TOCOPHEROL) 1.4 mg/L (<=4.3)
[2024-10-22 20:00] VITALS: BP 126/69; TEMP 99; O2SAT 94
[2024-10-23 04:00] VITALS: BP 133/83; TEMP 97.9; O2SAT 93
[2024-10-23] MEDS: CYANOCOBALAMIN 500 MCG TAB PO SCH (08:08)
[2024-10-23 12:00] VITALS: BP 109/63; TEMP 98.1; O2SAT 94
[2024-10-24 04:09] VITALS: BP 146/94; TEMP 97.5; O2SAT 96
[2024-10-24 06:38] LABS: ALBUMIN 3.5 G/DL (3.2-5.2); CALCIUM LEVEL 9.8 MG/DL (8.3-10.6); CREATININE FOR GFR 1.37 MG/DL (0.55-1.30); GLOMERULAR FILTRATION RATE 40.3 (>39); MAGNESIUM LEVEL 2.2 MG/DL (1.8-2.4); PHOSPHORUS LEVEL 4.4 MG/DL (2.4-5.1); POTASSIUM SERUM 4.9 MMOL/L (3.5-5.1)
[2024-10-24] MEDS: NS 500 ML IV ONE (08:07)
[2024-10-24] MEDS: ATOVAQUONE SUSP 750MG/5ML 210 ML BTL PO SCH (09:40)
[2024-10-24] MEDS: PATIROMER SORBITEX CALCIUM 8.4 GM POWDER PACKET (VELTASSA) PO ONE (11:59)
[2024-10-24 18:28] LABS: VITAMIN B6,PYRIDOXAL PHOSPHATE 3.4 ng/mL (2.1-21.7)
[2024-10-25 04:00] VITALS: BP 123/87; TEMP 97.9; O2SAT 95
[2024-10-25 06:18] LABS: CALCIUM LEVEL 9.1 MG/DL (8.3-10.6); CREATININE FOR GFR 1.13 MG/DL (0.55-1.30); GLOMERULAR FILTRATION RATE 50.4 (>39); PHOSPHORUS LEVEL 4.2 MG/DL (2.4-5.1); POTASSIUM SERUM 5.1 MMOL/L (3.5-5.1)
[2024-10-25] MEDS ORDERED: VITA500T40 PO (07:54)
[2024-10-25] MEDS ORDERED: TOPA1TAB PO (07:54)
[2024-10-25] MEDS ORDERED: MECL-86 PO (07:54)
[2024-10-25] MEDS ORDERED: NYST-38 SS (07:54)
[2024-10-25] MEDS ORDERED: COLA100C5 PO (07:54)
[2024-10-25] MEDS ORDERED: MAGN400T2 PO (07:54)
[2024-10-25] MEDS ORDERED: FLUTISP NARES (07:54)
[2024-10-25 10:19] VITALS: BP 142/86
[2024-10-25] MEDS ORDERED: DOXY100C3 PO (10:19)
[2024-10-25] MEDS: FLUBLOK(EGGFREE) TRIVAL(24-25) VACCINE PF 0.5ML SYRINGE 18YRS & OLDER IM.IMMUN ONE (11:11)
[2024-10-25 22:12] LABS: INTRINSIC FACTOR ANTIBODY Positive (Negative)
[2024-10-26 00:52] LABS: ANTI-PARIETAL CELL ANTIBODY <= 20.0 Unit (<=20.0)
== END 2024-10-25 11:44 | disposition home or self-care (01) ==
LOC: M ED 10:51 → EDBD 10:51 → EEVIPCON 10:52 → M ED INP 10:52 → M MSPAV 21:44
PROVIDERS: ADMIT Student in an Organized Health Care Education/Training Program; ATTEND General Practice
DX: R42 Dizziness and giddiness (principal); I95.1 Orthostatic hypotension; D51.9 Vitamin B12 deficiency anemia, unspecified; S22.080D Wedge compression fracture of T11-T12 vertebra, subsequent encounter for fracture with routine healing; E78.5 Hyperlipidemia, unspecified; J96.10 Chronic respiratory failure, unspecified whether with hypoxia or hypercapnia; Z99.81 Dependence on supplemental oxygen; B37.0 Candidal stomatitis; E87.8 Other disorders of electrolyte and fluid balance, not elsewhere classified; I50.30 Unspecified diastolic (congestive) heart failure; I11.0 Hypertensive heart disease with heart failure; I45.81 Long QT syndrome; D50.9 Iron deficiency anemia, unspecified; Z79.899 Other long term (current) drug therapy
CPT/HCPCS: 36415; 70450; 71045; 71275; 72125; 80048; 80069; 80076; 82525; 82607; 82746; 83516; 83735; 83921; 84145; 84207; 84425; 84446; 85025; 85027; 86140; 86340; 87486; 87581; 87633; 87798; 90673; 93005; 93041; 94640; 94760; 96361; 96372; 96374; 96375; 96376; 97112; 97116; 97161; 97530; 99285; G0008; G0378; J1596; J1650; J2919; J3420; J3475; J7512; Q9967

== ENCOUNTER → 2024-11-18 | Outpatient (CLI) | payer MEDICARE ==
[~2024-11-18] MED LIST changes: +COLA100C5 PO; +DOXY100C3 PO; +MAGN400T2 PO; +MECL-86 PO; +NYST-38 SS; +OYST500C PO; +TOPA1TAB PO; +VITA500T40 PO
[2024-11-18 13:42] LABS: MAGNESIUM LEVEL 1.9 MG/DL (1.8-2.4)
== END ==
LOC: M WUC 10:26
PROVIDERS: ATTEND Physician Assistant
DX: R42 Dizziness and giddiness (principal); E83.42 Hypomagnesemia

== ENCOUNTER → 2024-12-15 | Outpatient (REF) | payer MEDICARE ==
[2024-12-15 13:24] LABS: CALCIUM LEVEL 9.4 MG/DL (8.3-10.6); CREATININE FOR GFR 1.22 MG/DL (0.55-1.30); GLOMERULAR FILTRATION RATE 46.1 (>39); POTASSIUM SERUM 4.5 MMOL/L (3.5-5.1)
[2024-12-15 13:26] LABS: TOTAL 25(OH) VITAMIN D 95.9 NG/ML (20.0-100.0)
== END ==
LOC: M LABWUC 11:16
PROVIDERS: ATTEND Nurse Practitioner Family
DX: M80.00XA Age-related osteoporosis with current pathological fracture, unspecified site, initial encounter for fracture (principal); Z79.899 Other long term (current) drug therapy

== ENCOUNTER 2024-12-30 15:56 | Outpatient (CLI) | payer MEDICARE ==
[2024-12-30 16:05] VITALS: BP 167/90; O2SAT 91
[2024-12-30] MEDS: ZOLEDRONIC ACID 5 MG in IV 1 EA IV ONE (16:06)
[2024-12-30 16:44] VITALS: BP 158/88; O2SAT 94
== END 2024-12-30 16:45 | disposition home or self-care (01) ==
LOC: M INFU 15:56
PROVIDERS: ATTEND Nurse Practitioner Family
DX: M80.00XA Age-related osteoporosis with current pathological fracture, unspecified site, initial encounter for fracture (principal)
CPT/HCPCS: 96413; J3489

== ENCOUNTER 2025-01-09 10:29 | Day surgery (SDC) | payer MEDICARE ==
[~2025-01-09] VITALS: Ht 154.9 cm; Wt 54.4 kg
[~2025-01-09 10:29] MED LIST changes: +CYCLOPENTOLATE 1% OPHTH SOLN 2ML BTL OS SCH; +FLURBIPROFEN 0.03% OPHTH SOLN 2.5 ML OS SCH; +LR 1,000 ML IV SCH; +PHENYLEPHRINE 2.5% OPHTH SOL 2ML OS SCH; +TETRACAINE 0.5% OPHTH SOLN 4ML OS SCH; +TOPI25TA10 PO; +ZOLO100T PO
[2025-01-09] MEDS ORDERED: fentaNYL 100 MCG/2 ML INJECTION As Ordered ONE (11:31)
[2025-01-09] MEDS ORDERED: MIDAZOLAM INJ 2MG/2ML VIAL As Ordered ONE (11:31)
[2025-01-09] MEDS: PHENYLEPHRINE 2.5% OPHTH SOL 2ML OS SCH (11:43)
[2025-01-09] MEDS: CYCLOPENTOLATE 1% OPHTH SOLN 2ML BTL OS SCH (11:43)
[2025-01-09] MEDS: FLURBIPROFEN 0.03% OPHTH SOLN 2.5 ML OS SCH (11:44)
[2025-01-09] MEDS: TETRACAINE 0.5% OPHTH SOLN 4ML OS SCH (11:44)
[2025-01-09] MEDS: LIDOCAINE 1% SDV 5ML VIAL As Ordered ONE (13:14)
[2025-01-09] MEDS: CEFUROXIME 1MG/0.1ML INTRACAMERAL INJ As Ordered ONE (13:15)
[2025-01-09 13:35] VITALS: BP 146/87; TEMP 97.8; O2SAT 94
== END 2025-01-09 13:54 | disposition home or self-care (01) ==
LOC: M SDC 10:29
PROVIDERS: ATTEND Ophthalmology
DX: H25.12 Age-related nuclear cataract, left eye (principal); I10 Essential (primary) hypertension; E78.5 Hyperlipidemia, unspecified; E03.9 Hypothyroidism, unspecified; K21.9 Gastro-esophageal reflux disease without esophagitis; F41.9 Anxiety disorder, unspecified; F32.A Depression, unspecified; J44.9 Chronic obstructive pulmonary disease, unspecified; Z79.51 Long term (current) use of inhaled steroids; Z87.891 Personal history of nicotine dependence; Z79.899 Other long term (current) drug therapy; Z79.52 Long term (current) use of systemic steroids
CPT/HCPCS: 66984; J0697; J2250; J3010; V2632

== ENCOUNTER → 2025-07-21 | Outpatient (CLI) | payer MEDICARE, MEDICAID ==
[~2025-07-21] MED LIST changes: -CYCLOPENTOLATE 1% OPHTH SOLN 2ML BTL OS SCH; -FLURBIPROFEN 0.03% OPHTH SOLN 2.5 ML OS SCH; +LIDO1ADH93 TOP; -LIDO5DIS41 TOP; -LR 1,000 ML IV SCH; -PHENYLEPHRINE 2.5% OPHTH SOL 2ML OS SCH; -TETRACAINE 0.5% OPHTH SOLN 4ML OS SCH; +TOPI-256 PO; -TOPI25TA10 PO
[2025-07-21 14:39] LABS: FREE T4 0.96 NG/DL (0.89-1.76); TOTAL 25(OH) VITAMIN D 113.3 NG/ML (20.0-100.0)
[2025-07-21 14:40] LABS: CALCIUM LEVEL 9.0 MG/DL (8.3-10.6); CARBON DIOXIDE LEVEL 26.0 MMOL/L (20-31); CHLORIDE LEVEL 105.0 MMOL/L (98-107); CREATININE FOR GFR 1.34 MG/DL (0.55-1.30); GLOMERULAR FILTRATION RATE 41.9 (>39); POTASSIUM SERUM 3.7 MMOL/L (3.5-5.1); SODIUM LEVEL 139.0 MMOL/L (136-145)
== END ==
LOC: M WUC 10:01
PROVIDERS: ATTEND Nurse Practitioner Family
DX: E89.0 Postprocedural hypothyroidism (principal); M80.00XA Age-related osteoporosis with current pathological fracture, unspecified site, initial encounter for fracture